=== PATIENT | female | born 1985 | race Caucasian/White ===

== ENCOUNTER 2016-12-17 07:24 | Emergency (ER) | payer OTHER ==
[2016-12-17] MEDS ORDERED: NACL 0.9% 1000 ML 1,000 ML IV ONE (08:11)
[2016-12-17] MEDS ORDERED: ZOFRAN IV ONE (08:11)
[2016-12-17 09:09] LABS: Alanine Aminotransferase 12 units/L (7-56); Albumin 3.8 g/dL (3.9-5); Albumin/Globulin Ratio 1.4 %; Alkaline Phosphatase 57 units/L (35-129); Anion Gap 14 mmol/L; BUN/Creatinine Ratio 11.66; Blood Urea Nitrogen 7 mg/dL (7-17); Calcium 8.5 mg/dL (8.4-10.2); Carbon Dioxide 24 mmol/L (22-30); Chloride 104.4 mmol/L (98-107); Glucose 80 mg/dL (65-100); Potassium 3.8 mmol/L (3.6-5.0); Sodium 139 mmol/L (137-145); Total Protein 6.6 g/dL (6.3-8.2)
[2016-12-17 09:12] LABS: Basophils % (Auto) 0.7 % (0.0-1.8); Eosinophils % (Auto) 6.8 % (0.0-4.3); Hematocrit 35.9 % (30.3-42.9); Hemoglobin 12.3 gm/dl (10.1-14.3); Mean Corpuscular HGB Conc 34 % (30-34); Mean Corpuscular Hemoglobin 31 pg (28-32); Mean Corpuscular Volume 89 fl (79-97); Platelet Count 171 K/mm3 (140-440); Red Blood Count 4.01 M/mm3 (3.65-5.03); Red Cell Distribution Width 13.2 % (13.2-15.2); White Blood Count 6.9 K/mm3 (4.5-11.0)
[2016-12-17 09:48] LABS: Bacteria,Urine 2+ /HPF (Negative); Bilirubin,Urine NEG (Negative); Blood,Urine SM (Negative); Ketones,Urine NEG (Negative); Leukocyte Esterase,Urine MOD (Negative); Mucus,Urine FEW /HPF; Nitrite,Urine NEG (Negative); Protein,Urine <15 mg/dL mg/dL (Negative); Urobilinogen,Urine < 2.0 mg/dL (<2.0)
[2016-12-17] MEDS ORDERED: TORADOL IV ONE (10:32)
--- NOTE | 2016-12-17 12:07 | Emergency Department Report ---
ED General Adult HPI - General Chief complaint: Upper Respiratory Infection Stated complaint: N/V/D Time Seen by Provider: 12/17/16 07:57 Source: patient Mode of arrival: Ambulatory Limitations: No Limitations - History of Present Illness Initial comments: Patient is a 31-year-old female who presents due to body aches, cough and nasal congestion times one week. Patient denies any fever or chills. Patient denies any dysuria, hematuria or frequency. Patient complains of also having nausea, vomiting and diarrhea. Patient denies any abdominal pain. Patient has any vaginal discharge or vaginal bleeding. Patient denies any sore throat. MD Complaint: body aches, nausea, vomiting and diarrhea Onset/Timin -: week(s) Location: back, upper extremity Radiation: non-radiation Severity scale (0 -10): 4 Quality: aching Consistency: constant Improves with: none Worsens with: none Associated Symptoms: cough, nausea/vomiting Treatments Prior to Arrival: none - Related Data Previous Rx's Medication Instructions Recorded Last Taken Type Acetaminophen/Codeine [Tylenol 1 tab PO Q6H PRN #15 tab 12/17/16 Unknown Rx /Codeine # 3 tab] Ciprofloxacin HCl [Ciprofloxacin 500 mg PO Q12H #14 tab 12/17/16 Unknown Rx TAB] Ibuprofen [Motrin 800 MG tab] 800 mg PO Q8HR PRN #30 tablet 12/17/16 Unknown Rx Methocarbamol [Robaxin TAB] 750 mg PO Q8H PRN #15 tablet 12/17/16 Unknown Rx Nebulizer/Compressor [Innospire 1 each MC PRN #1 each 12/17/16 Unknown Rx Mini Compressor Neb] Allergies Allergy/AdvReac Type Severity Reaction Status Date / Time blueberry Allergy Hives Verified 12/17/16 08:38 ED Review of Systems ROS: Stated complaint: N/V/D Other details as noted in HPI Comment: All other systems reviewed and negative Constitutional: no symptoms reported. denies: chills, diaphoresis, fever, malaise, weakness Respiratory: cough. denies: orthopnea, shortness of breath, SOB with exertion, SOB at rest, stridor, wheezing Cardiovascular: denies: chest pain, palpitations, dyspnea on exertion, orthopnea , edema, syncope, paroxysmal nocturnal dyspnea Gastrointestinal: nausea, vomiting. denies: abdominal pain Genitourinary: denies: urgency, dysuria, frequency, hematuria, discharge, abnormal menses, dyspareunia Musculoskeletal: back pain, myalgia. denies: joint swelling, arthralgia Skin: denies: rash Neurological: headache. denies: numbness, paresthesias, confusion Psychiatric: denies: anxiety ED Past Medical Hx - Past Medical History Previous Medical History?: No - Surgical History Past Surgical History?: Yes Additional Surgical History: CSECTION - Social History Smoking Status: Never Smoker Substance Use Type: None - Medications Home Medications: Home Medications Medication Instructions Recorded Confirmed Last Taken Type Acetaminophen/Codeine [Tylenol 1 tab PO Q6H PRN #15 tab 12/17/16 Unknown Rx /Codeine # 3 tab] Ciprofloxacin HCl [Ciprofloxacin 500 mg PO Q12H #14 tab 12/17/16 Unknown Rx TAB] Ibuprofen [Motrin 800 MG tab] 800 mg PO Q8HR PRN #30 tablet 12/17/16 Unknown Rx Methocarbamol [Robaxin TAB] 750 mg PO Q8H PRN #15 tablet 12/17/16 Unknown Rx Nebulizer/Compressor [Innospire 1 each MC PRN #1 each 12/17/16 Unknown Rx Mini Compressor Neb] ED Physical Exam - General Limitations: No Limitations General appearance: alert, in no apparent distress - Head Head exam: Present: atraumatic, normocephalic, normal inspection - Eye Eye exam: Present: normal appearance, PERRL, EOMI Pupils: Present: normal accommodation - Neck Neck exam: Present: normal inspection, full ROM. Absent: tenderness, meningismus - Respiratory Respiratory exam: Present: normal lung sounds bilaterally. Absent: respiratory distress, wheezes, rales, rhonchi, stridor, chest wall tenderness - Cardiovascular Cardiovascular Exam: Present: regular rate, normal rhythm, normal heart sounds - GI/Abdominal GI/Abdominal exam: Present: soft, normal bowel sounds. Absent: distended, tenderness, guarding, rebound, rigid - Extremities Exam Extremities exam: Present: normal inspection, full ROM. Absent: tenderness, normal capillary refill, pedal edema, joint swelling, calf tenderness - Back Exam Back exam: Present: normal inspection, full ROM. Absent: tenderness, CVA tenderness (R), CVA tenderness (L), muscle spasm, paraspinal tenderness, vertebral tenderness, rash noted - Neurological Exam Neurological exam: Present: alert, oriented X3, normal gait - Psychiatric Psychiatric exam: Present: normal affect, normal mood - Skin Skin exam: Present: warm, dry, intact ED Course Vital Signs 12/17/16 12/17/16 12/17/16 07:48 10:48 11:18 Temperature 98.4 F Pulse Rate 82 Respiratory 16 18 18 Rate Blood Pressure 138/73 Blood Pressure [Right] O2 Sat by Pulse 100 Oximetry 12/17/16 12:22 Temperature Pulse Rate 89 Respiratory 18 Rate Blood Pressure Blood Pressure 140/78 [Right] O2 Sat by Pulse Oximetry ED Medical Decision Making - Lab Data Result diagrams: 12/17/16 08:26 12/17/16 08:26 Lab Results 12/17/16 12/17/16 12/17/16 Range/Units 08:26 08:26 09:30 WBC 6.9 (4.5-11.0) K/mm3 RBC 4.01 (3.65-5.03) M/mm3 Hgb 12.3 (10.1-14.3) gm/dl Hct 35.9 (30.3-42.9) % MCV 89 (79-97) fl MCH 31 (28-32) pg MCHC 34 (30-34) % RDW 13.2 (13.2-15.2) % Plt Count 171 (140-440) K/mm3 Lymph % (Auto) 39.4 H (13.4-35.0) % [place] % (Auto) 7.2 (0.0-7.3) % Eos % (Auto) 6.8 H (0.0-4.3) % Baso % (Auto) 0.7 (0.0-1.8) % Lymph # 2.7 (1.2-5.4) K/mm3 [place] # 0.5 (0.0-0.8) K/mm3 Eos # 0.5 H (0.0-0.4) K/mm3 Baso # 0.1 (0.0-0.1) K/mm3 Seg Neutrophils % 45.9 (40.0-70.0) % Seg Neutrophils # 3.2 (1.8-7.7) K/mm3 Sodium 139 (137-145) mmol/L Potassium 3.8 (3.6-5.0) mmol/L Chloride 104.4 (98-107) mmol/L Carbon Dioxide 24 (22-30) mmol/L Anion Gap 14 mmol/L BUN 7 (7-17) mg/dL Creatinine 0.6 L (0.7-1.2) mg/dL Estimated GFR > 60 ml/min BUN/Creatinine Ratio 11.66 % Glucose 80 (65-100) mg/dL Calcium 8.5 (8.4-10.2) mg/dL Total Bilirubin 0.20 (0.1-1.2) mg/dL AST 12 (5-40) units/L ALT 12 (7-56) units/L Alkaline Phosphatase 57 (35-129) units/L Total Protein 6.6 (6.3-8.2) g/dL Albumin 3.8 L (3.9-5) g/dL Albumin/Globulin Ratio 1.4 % Urine Color Yellow (Yellow) Urine Turbidity Clear (Clear) Urine pH 7.0 (5.0-7.0) Ur Specific [place] 1.016 (1.003-1.030) Urine Protein <15 mg/dl (Negative) mg/dL Urine Glucose (UA) Neg (Negative) mg/dL Urine Ketones Neg (Negative) mg/dL Urine Blood Sm (Negative) Urine Nitrite Neg (Negative) Urine Bilirubin Neg (Negative) Urine Urobilinogen < 2.0 (<2.0) mg/dL Ur Leukocyte Esterase Mod (Negative) Urine WBC (Auto) 1.0 (0.0-6.0) /HPF Urine RBC (Auto) 2.0 (0.0-6.0) /HPF U Epithel Cells (Auto) 5.0 (0-13.0) /HPF Urine Bacteria (Auto) 2+ (Negative) /HPF Urine Mucus Few /HPF Urine HCG, Qual Negative (Negative) - Radiology Data Radiology results: report reviewed, image reviewed Chest x-ray showed no acute findings. No consolidation, no infiltrates. - Medical Decision Making Patient was in no acute distress, patient had generalized body aches. Patient to bilateral lung sounds with good air exchange. Patient was given normal saline 1 L bolus, Toradol and Zofran in the ER. CBC and CMP were unremarkable, urinalysis has small leukocyte esterase. Urine test was negative. Patient was discharged with a prescription for ciprofloxacin. patient was told to follow up with her PCP. - Differential Diagnosis VIRAL INFECTION, UTI, BRONCHITIS Critical care attestation.: If time is entered above; I have spent that time in minutes in the direct care of this critically ill patient, excluding procedure time. ED Disposition Clinical Impression: Body aches UTI (urinary tract infection) Qualifiers: Urinary tract infection type: acute cystitis Hematuria presence: without hematuria Qualified Code(s): N30.00 - Acute cystitis without hematuria Disposition: TO HOME OR SELFCARE Is pt being admited?: No Does the pt Need Aspirin: No Condition: Good Instructions: Urinary Tract Infection in Women (ED) Additional Instructions: Take ciprofloxacin 500 mg twice a day for 7 days. Take Robaxin 750 mg every 8 hours as needed for muscle spasms. Take Tylenol with codeine one tablet every 6 hours as needed for pain. Take ibuprofen 100 mg every 8 hours as needed moderate pain. Follow-up with [facility] for any complications. Prescriptions: Acetaminophen/Codeine [Tylenol /Codeine # 3 tab] 1 tab PO Q6H PRN #15 tab PRN Reason: Pain Ciprofloxacin HCl [Ciprofloxacin TAB] 500 mg PO Q12H #14 tab Ibuprofen [Motrin 800 MG tab] 800 mg PO Q8HR PRN #30 tablet PRN Reason: Pain Methocarbamol [Robaxin TAB] 750 mg PO Q8H PRN #15 tablet PRN Reason: Muscle Spasm Nebulizer/Compressor [Innospire Mini Compressor Neb] 1 each MC PRN #1 each Referrals: PRIMARY CARE, [Primary Care Provider] - 3-5 Days [facility] [Outside] - 3-5 Days Forms: Work/School Release Form(ED) Time of Disposition: 12:07
[2016-12-17 12:22] VITALS: BP 140/78
--- NOTE | 2016-12-17 12:22 | XRay Report ---
ROUTINE CHEST, TWO VIEWS: HISTORY: Cough. The trachea, heart, mediastinal contour, lung simmons and bony thorax are unremarkable. IMPRESSION: Unremarkable chest x-ray.
== END 2016-12-17 12:47 | disposition home or self-care (01) ==
LOC: ED 07:24
DX: N39.0 Urinary tract infection, site not specified (principal); R05 Cough; R09.81 Nasal congestion; Z91.018 Allergy to other foods
CPT/HCPCS: 36415; 71020; 80053; 81001; 81025; 85025; 96361; 96374; 96375; 99284; J1885; J2405; J7030